=== PATIENT | male | born 1980 | race Caucasian/White ===

== ENCOUNTER 2018-02-03 22:30 | Emergency (ER) | payer SELFPAY ==
[~2018-02-03] VITALS: Ht 188 cm; Wt 83.9 kg
[~2018-02-03 22:30] MED LIST: NKM
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
[2018-02-03] MEDS ORDERED: Lidocaine 1% 10mg/ml/Epi 0.005mg/ml 30ml vial INJ ONE (22:45)
[2018-02-03] MEDS ORDERED: Tetanus/Diptheria/Pertussis Vaccine 0.5ml Syr IM ONE (22:45)
[2018-02-03] MEDS ORDERED: Neosporin Oint Ud Pkt TOP ONE (22:45)
[2018-02-03 23:22] LABS: BASOPHILS % (AUTO) 1.3 % (0.0-2.0); EOSINOPHILS % (AUTO) 1.8 % (0.0-3.0); HEMATOCRIT 43.2 % (42.0-52.0); HEMOGLOBIN 15.3 G/DL (14.2-18.0); LYMPHOCYTES % (AUTO) 34.2 % (20.0-45.0); MEAN CORPUSCULAR VOLUME 90 FL (80-99); MONOCYTES % (AUTO) 7.3 % (1.0-10.0); NEUTROPHILS % (AUTO) 55.4 % (45.0-75.0); PLATELET COUNT 220 K/UL (150-450); RED CELL DISTRIBUTION WIDTH 10.9 % (11.6-14.8); WHITE BLOOD COUNT 10.3 K/UL (4.8-10.8)
[2018-02-03 23:25] LABS: ANION GAP 12 mmol/L (5-15); BLOOD UREA NITROGEN 9 mg/dL (7-18); CARBON DIOXIDE 25 MMOL/L (21-32); CHLORIDE 106 MMOL/L (98-107); CREATININE 0.9 MG/DL (0.55-1.30); POTASSIUM 3.7 MMOL/L (3.5-5.1); SODIUM 143 MMOL/L (136-145)
[2018-02-03 23:27] LABS: INR 1.1 (0.9-1.1)
[2018-02-03 23:29] LABS: ALANINE AMINOTRANSFERASE 24 U/L (12-78); ALBUMIN/GLOBULIN RATIO 1.3 (1.0-2.7); ALKALINE PHOSPHATASE 62 U/L (46-116); ASPARTATE AMINO TRANSFERASE 21 U/L (15-37); BILIRUBIN,TOTAL 0.4 MG/DL (0.2-1.0)
[2018-02-03 23:30] VITALS: BP 130/78
[2018-02-04 01:30] VITALS: BP 130/76
[2018-02-04 02:01] LABS: BILIRUBIN, URINE NEGATIVE (NEGATIVE); COLOR,URINE PALE YELLOW; GLUCOSE, URINE (UA) NEGATIVE (NEGATIVE); KETONES,URINE NEGATIVE (NEGATIVE); LEUKOCYTE ESTERASE ,URINE NEGATIVE (NEGATIVE); NITRITE,URINE NEGATIVE (NEGATIVE); PH,URINE 6 (4.5-8.0); PROTEIN,URINE NEGATIVE (NEGATIVE); UROBILINOGEN,URINE NORMAL MG/DL (0.0-1.0)
[2018-02-04 02:27] LABS: APPEARANCE,URINE CLEAR
[2018-02-04 03:26] VITALS: BP 126/83
[2018-02-04] MEDS ORDERED: Ketorolac 30mg Inj IV ONE (04:15)
[2018-02-04] MEDS ORDERED: fentaNYL 100 mcg/2 mL IV ONE (06:30)
[2018-02-04 07:00] VITALS: BP 121/74
[2018-02-04 08:06] VITALS: BP 123/72
[2018-02-04 09:17] VITALS: BP 97/53
== END 2018-02-04 09:09 | disposition short-term general hospital (02) ==
LOC: EDBD 22:30 → EMR 23:59
DX: S06.0X0A Concussion without loss of consciousness, initial encounter (principal); S01.21XA Laceration without foreign body of nose, initial encounter; S01.511A Laceration without foreign body of lip, initial encounter; S05.12XA Contusion of eyeball and orbital tissues, left eye, initial encounter; S05.11XA Contusion of eyeball and orbital tissues, right eye, initial encounter; S40.212A Abrasion of left shoulder, initial encounter; S60.512A Abrasion of left hand, initial encounter; S60.511A Abrasion of right hand, initial encounter; W05.2XXA Fall from non-moving motorized mobility scooter, initial encounter; Y92.9 Unspecified place or not applicable; F10.129 Alcohol abuse with intoxication, unspecified; Z23 Encounter for immunization; F17.200 Nicotine dependence, unspecified, uncomplicated; F19.90 Other psychoactive substance use, unspecified, uncomplicated
CPT/HCPCS: 12013; 36415; 70450; 70486; 72125; 80053; 80307; 81001; 85025; 85610; 85730; 90471; 90715; 96374; 96375; 96376; 99291; G0480; J1885; J2405; J3010; 80329; 99284